=== PATIENT | male | born 1995 | race Two or more races ===

== ENCOUNTER 2019-08-07 13:51 | Emergency (ER) | payer OTHER, SELFPAY ==
[~2019-08-07] VITALS: Ht 188 cm; Wt 108.9 kg
[2019-08-07 13:58] VITALS: Ht 188 cm; Wt 108.9 kg
[2019-08-07 15:38] VITALS: BP 147/93
== END 2019-08-07 15:38 | disposition home or self-care (01) ==
LOC: ED 13:51
DX: R05 Cough (principal); Z20.828 Contact with and (suspected) exposure to other viral communicable diseases; F17.210 Nicotine dependence, cigarettes, uncomplicated
CPT/HCPCS: 99406; Q0092; U0003-CS